=== PATIENT | female | born 1995 | race American Indian/Alaskan Native ===

== ENCOUNTER 2016-10-06 12:51 | Emergency (ER) | payer SELFPAY ==
[~2016-10-06] VITALS: Ht 157.5 cm; Wt 60.0 kg
[2016-10-06 12:53] VITALS: BP 119/75; PULSE 86; RESP 20; TEMP 97.5; O2SAT 99
--- NOTE | 2016-10-06 13:27 | PD ---
HPI Chief Complaint: [employer] Problem/Complaint Time Seen by Provider: 13:17 Travel History International Travel<30 days: No Contact w/Intl Traveler<30days: No Traveled to known affect area: No History of Present Illness HPI Patient is a 21-year-old female presenting to emergency department for evaluation of vaginal itching. Patient has trialed [id number] miconazole with no relief of her symptoms. Symptoms have been ongoing for 3-4 days. She has had unprotected sex approximately one week ago. She denies any abdominal pain, pelvic pain, dysuria, vaginal discharge or odor. Last menstrual cycle was 3 weeks ago. [facility] Past Medical History Medical History: Denies Significant Hx ?: Not LMP: 09/12/16 Past Surgical History Surgical History: No Previous Surgery Social History Alcohol Use: No Tobacco Use: No Substance Use: No Allergies-Medications (Allergen,Severity, Reaction): Coded Allergies: No Known Allergies (Unverified , 10/06/16) Reported Meds & Prescriptions Reported Meds & Active Scripts Active No Active Prescriptions or Reported Medications Review of Systems Except as stated in HPI: all other systems reviewed are Neg Genitourinary: Positive: Other (vaginal itching) Physical Exam Narrative GENERAL: Well-nourished, well-developed patient. SKIN: Focused skin assessment warm/dry. HEAD: Normocephalic. EYES: No scleral icterus. No injection or drainage. NECK: Supple, trachea midline. No JVD or lymphadenopathy. CARDIOVASCULAR: Regular rate and rhythm without murmurs, gallops, or rubs. RESPIRATORY: Breath sounds equal bilaterally. No accessory muscle use. GASTROINTESTINAL: Abdomen soft, non-tender, nondistended. MUSCULOSKELETAL: No cyanosis, or edema. GENITOURINARY: Normal external genitalia without lesions or erythema. Vaginal vault without blood, white drainage noted. Cervical os was closed with white drainage. No cervical motion tenderness. Uterus nontender and nonenlarged. Bilateral adnexa nontender without masses. . BACK: Nontender without obvious deformity. No CVA tenderness. Data Data Last Documented VS Vital Signs Date Time Temp Pulse Resp B/P Pulse Ox O2 Delivery O2 Flow Rate FiO2 10/06/16 12:53 97.5 86 20 119/75 99 Room Air Orders Gc And Chlamydia Pcr (10/06/16 13:13) Wet Prep Profile (10/06/16 13:13) Urinalysis - C+S If Indicated (10/06/16 13:13) Ed Urine Pregnancytest Poc (10/06/16 13:13) Urine Culture (10/06/16 13:24) Labs Laboratory Tests Test 10/06/16 10/06/16 13:24 13:40 Urine Color LIGHT-YELLOW Urine Turbidity HAZY Urine pH 7.0 Urine Specific [place] 1.007 Urine Protein NEG mg/dL Urine Glucose (UA) NEG mg/dL Urine Ketones TRACE mg/dL Urine Occult Blood NEG Urine Nitrite NEG Urine Bilirubin NEG Urine Urobilinogen LESS THAN 2.0 MG/DL Urine Leukocyte Esterase LARGE Urine RBC 2 /hpf Urine WBC 10 /hpf Urine Squamous Epithelial 4 /hpf Cells Urine Transitional Epithelial <1 /hpf Cells Urine Bacteria MANY /hpf Microscopic Urinalysis Comment CULTURE INDICATED Clue Cells (Wet Prep) NONE SEEN Vaginal Trichomonas (Wet Prep) NONE SEEN Vaginal Yeast (Wet Prep) NONE SEEN MDM Medical Decision Making Medical Screen Exam Complete: Yes Emergency Medical Condition: Yes Interpretation(s) Vital Signs Date Time Temp Pulse Resp B/P Pulse Ox O2 Delivery O2 Flow Rate FiO2 10/06/16 12:53 97.5 86 20 119/75 99 Room Air Differential Diagnosis Yeast infection versus bacterial vaginosis versus UTI versus other Narrative Course Patient is a 21-year-old female presenting with vaginal itching. Labs and UA ordered and pending. Pelvic exam with copious white discharge in vaginal canal. Wet prep is negative, urinalysis with elevated leukocyte esterase and white blood cells. Reflex culture pending. Patient will be treated with Diflucan. She is encouraged to follow-up with her primary doctor return to the emergency department for any new or worsening symptoms. Patient was advised that she would be notified if GC/Chlamydia resulted with positive results. Patient verbalized understanding of instructions. Patient stable for discharge. Diagnosis Primary Impression: Vaginal irritation Additional Impression: UTI (urinary tract infection) Qualified Code: N39.0 - Urinary tract infection without hematuria, site unspecified Referrals: [facility] Primary Care Physician Patient Instructions: General Instructions, Urinary Tract Infection in Women ( ED), Vaginal Discharge (ED) Additional Instructions: Follow-up with her primary doctor or [facility] Take medications as directed Return to emergency department for any new or worsening symptoms Med/Other Pt SpecificInfo: Prescription(s) given Scripts Nitrofurantoin Monohydrate Macrocrystals 100 Mg [id number] Mg PO BID 7 Days Ref 0 Prov:Josephine Huff 10/06/16 Fluconazole (Diflucan)150 Mg [id number] Mg PO ONCE #1 TAB Ref 0 Prov:Josephine Huff 10/06/16 Disposition: 01 DISCHARGE HOME Condition: Stable Josephine Huff Oct 06, 2016 13:27
[2016-10-06 13:43] LABS: BACTERIA, URINE MANY /hpf; BLOOD, URINE NEG (NEG); GLUCOSE,URINE NEG (NEG); KETONE, URINE TRACE mg/dL (NEG); NITRITE,URINE NEG (NEG); SQUAMOUS EPITHELIAL CELL URINE 4 /hpf (0-5); TRANSITIONAL EPI CELLS, URINE <1 /hpf; URINE COLOR LIGHT-YELLOW (YELLW/STRAW)
[2016-10-06 13:44] LABS: COMMENT (UR) CULTURE INDICATED; CULTURE IF INDICATED CULTURE INDICATED
--- NOTE | 2016-10-06 13:48 | PD ---
Data Data Last Documented VS Vital Signs Date Time Temp Pulse Resp B/P Pulse Ox O2 Delivery O2 Flow Rate FiO2 10/06/16 12:53 97.5 86 20 119/75 99 Room Air Orders Gc And Chlamydia Pcr (10/06/16 13:13) Wet Prep Profile (10/06/16 13:13) Urinalysis - C+S If Indicated (10/06/16 13:13) Ed Urine Pregnancytest Poc (10/06/16 13:13) Urine Culture (10/06/16 13:24) Labs Laboratory Tests Test 10/06/16 13:24 Urine Color LIGHT-YELLOW Urine Turbidity HAZY Urine pH 7.0 Urine Specific [place] 1.007 Urine Protein NEG mg/dL Urine Glucose (UA) NEG mg/dL Urine Ketones TRACE mg/dL Urine Occult Blood NEG Urine Nitrite NEG Urine Bilirubin NEG Urine Urobilinogen LESS THAN 2.0 MG/DL Urine Leukocyte Esterase LARGE Urine RBC 2 /hpf Urine WBC 10 /hpf Urine Squamous Epithelial 4 /hpf Cells Urine Transitional Epithelial <1 /hpf Cells Urine Bacteria MANY /hpf Microscopic Urinalysis Comment CULTURE INDICATED MDM Supervised Visit with ÁLVARO: Yes Narrative Course The history, exam, and medical decision-making in the associated mid-level provider note were completed with my assistance. I reviewed and agree with the findings presented. I attest that I had a [id number] encounter with the patient on the same day, and personally performed and documented my assessment and findings in the medical record. *My assessment and Findings: 21 year-old woman, vaginal irritation. Pelvic exam appears to show yeast infection. Patient was a smoker [id number] medicines without significant improvement. She is sexually active. GC and chlamydia were sent. Treat if positive. Scripts No Active Prescriptions or Reported Meds Franki Sharp MD Oct 06, 2016 13:48
[2016-10-06] MEDS ORDERED: DIFL150T PO (14:03)
[2016-10-06] MEDS ORDERED: NITR100C4 PO (14:03)
[2016-10-06 16:56] LABS: CHLAMYDIA PCR NOT DETECTED (NOT DETECT); NEISSERIA PCR NOT DETECTED (NOT DETECT)
== END 2016-10-06 14:19 | disposition home or self-care (01) ==
LOC: NEPD 12:51
DX: N89.8 Other specified noninflammatory disorders of vagina (principal); N39.0 Urinary tract infection, site not specified
CPT/HCPCS: 81001; 84703; 87086; 87210; 87491; 87591; 99284